=== PATIENT | female | born 1960 | race Caucasian/White ===

== ENCOUNTER 2017-01-24 05:58 | Day surgery (SDC) | payer OTHER ==
[~2017-01-24] VITALS: Ht 154.9 cm; Wt 62.1 kg
[2017-01-24] VITALS (7 sets, daily range): BP systolic 119–147; BP diastolic 65–81; PULSE 68–77; RESP 12–27; Ht 154.9 cm; Wt 62.1 kg
[2017-01-24] MEDS ORDERED: LACTATED RINGER'S 1,000 ML IV SCH (06:00)
[2017-01-24] MEDS ORDERED: MOXIFLOXACIN 0.5% 3 ML OPH OPER SCH (06:00)
[2017-01-24] MEDS ORDERED: CYCLOPENTOLATE 1% 2 ML OPH OPER SCH (06:00)
[2017-01-24] MEDS ORDERED: TETRACAINE 0.5% 4 ML OPH OPER SCH (06:00)
[2017-01-24] MEDS ORDERED: BROMFENAC SODIUM 1.7 ML OPH DROP OPER SCH (06:00)
[2017-01-24] MEDS ORDERED: LIDOCAINE 3.5% GEL TUBE OPER ONE (06:00)
[2017-01-24] MEDS ORDERED: METF1000 PO (06:45)
[2017-01-24] MEDS ORDERED: INSU100I33 SC (06:46)
[2017-01-24] MEDS ORDERED: BENA5TAB2 PO (06:46)
--- NOTE | 2017-01-24 06:59 | HPN ---
Date/Time of Note Date/Time of Note DATE: 01/24/17 TIME: 06:59 Interval H&P Admission Note Pt. seen H&P reviewed: No system changes ELENITA DOWD D.O. Jan 24, 2017 06:59
[2017-01-24] MEDS ORDERED: BALANCED SALT SOLN 15 ML OPH IRRIG ONE (07:00)
[2017-01-24] MEDS ORDERED: FENTAnyl 50 MCG/ML VIAL ONE (07:26)
[2017-01-24] MEDS ORDERED: LIDOCAINE 1%/EPI 30 ML INJ ONE (07:37)
[2017-01-24] MEDS ORDERED: MEPERIDINE 25 MG INJ IV PRN (08:00)
[2017-01-24] MEDS ORDERED: DIPHENHYDRAMINE 50 MG INJ IV PRN (08:00)
[2017-01-24] MEDS ORDERED: FENTAnyl 50 MCG/ML VIAL IV PRN (08:00)
[2017-01-24] MEDS ORDERED: HYDROmorphONE (0.2 MG/ML) 10ML SYG IV PRN (08:00)
[2017-01-24] MEDS ORDERED: METOCLOPRAMIDE 10 MG INJ IV PRN (08:00)
[2017-01-24] MEDS ORDERED: ONDANSETRON 4 MG INJ IV PRN (08:00)
--- NOTE | 2017-01-24 08:13 | SIPON ---
Date/Time of Note Date/Time of Note DATE: 01/24/17 TIME: 08:10 Operative Report Preoperative Diagnosis progressive peripheral pterigium, Rt eye Postoperative Diagnosis progressive peripheral pterigium, Rt eye Operation/Procedure Performed Removal of pterigium with transpositional graft placement, rt eye Surgeon see signature line medical assistant supervisor none Anesthesia: MAC Estimated blood loss: none Transfusion Required none Specimen none Grafts/Implants none Complications none ELENITA DOWD D.O. Jan 24, 2017 08:13
--- NOTE | 2017-01-27 10:02 | OPR ---
DATE OF OPERATION: 01/24/2017 SURGEON: Elenita Ibarra MD. ANESTHESIOLOGIST: Dr. Leidy Stock MD PREOPERATIVE DIAGNOSIS: Progressive peripheral of pterygium, right eye. POSTOPERATIVE DIAGNOSIS: Progressive peripheral pterygium, right eye. PLANNED PROCEDURE: Pterygium removal with transpositional autograft placement, right eye. PROCEDURE PERFORMED: Pterygium removal transpositional autograft placement right eye. CONSENT: Patient was given a detailed explanation regarding possible complications including recu rrence, scar formation, infection, bleeding, loss of vision, loss of the eye as an organ. Patient a lso was given option of just treatment diverted medications and possible outcomes of different optio ns for treatment. The patient decided to have surgery done and signed the consent. It can be found in her chart. DESCRIPTION OF PROCEDURE: The patient was brought to operation room in stable condition and placed on the operating room table in supine position and right eye was prepped for pterygium surgery in ro utine sterile technique. Retractor was placed into her right eye to hold her right eyelids. Then, lidocaine with % preservative-free was injected subconjunctivally in nasal area. It was followed by cauterization 4 borders of the pterygium borders cobalt body. Additional Gregorio scissors used to separate body of pterygium from underlying tissue and head of the pterygium was removed with the Be aver knife, was created with a [place] knife, and polished with a susan bur. Superiorly enucleate too was demarcated Steri-Strip handpiece cautery and by Viscoat visually used for separation of the conjunctiva from underlying tissue and a superior and inferior conjunctiva was covering bare sclera and 8-0 Vicryl suture was placed on limited autograft. Then TobraDex ointment was instilled and a patch placed over closed eyelids. The patient was transferred to recovery room in stable condition. Dictated By: ELENITA IBARRA MD NT/NTS Conf#: [id number] DID#: [id number]
== END 2017-01-24 09:18 | disposition home or self-care (01) ==
LOC: SDS 05:58
PROVIDERS: ATTEND Ophthalmology
DX: H11.051 Peripheral pterygium, progressive, right eye (principal); E11.9 Type 2 diabetes mellitus without complications
CPT/HCPCS: 65426; 82962; J1170; J2405; J3010; J7120; Z7512; Z7610